=== PATIENT | male | born 1965 | race Caucasian/White ===

== ENCOUNTER 2017-01-15 22:39 | Emergency (ER) | payer OTHER ==
[~2017-01-15 22:39] MED LIST: MOTRIN800 MG PO
[2017-01-15 23:46] VITALS: BP 120/87
== END 2017-01-16 03:13 | disposition left against medical advice (07) ==
LOC: ED 22:39
DX: Z53.21 Procedure and treatment not carried out due to patient leaving prior to being seen by health care provider (principal)

== ENCOUNTER 2017-04-03 14:37 | Emergency (ER) | payer OTHER ==
[~2017-04-03] VITALS: Ht 170.2 cm; Wt 68.9 kg
[2017-04-03 18:21] VITALS: BP 141/89
== END 2017-04-03 18:21 | disposition home or self-care (01) ==
LOC: ED 14:37
DX: F10.10 Alcohol abuse, uncomplicated (principal); I10 Essential (primary) hypertension; H10.10 Acute atopic conjunctivitis, unspecified eye

== ENCOUNTER 2019-08-05 11:19 | Emergency (ER) | payer OTHER ==
[~2019-08-05] VITALS: Ht 157.5 cm; Wt 69.9 kg
[2019-08-05 11:28] VITALS: Ht 157.5 cm; Wt 69.9 kg
[2019-08-05 12:32] LABS: CALCIUM 9.3 mg/dL (8.5-10.1); CARBON DIOXIDE 29.9 mmol/L (21-32); CHLORIDE SERUM 98 mmol/L (98-107); CREATININE SERUM 0.7 mg/dL (0.7-1.3); GFR1 > 60 mL/min; GLUCOSE SERUM 114 mg/dL (74-106); POTASSIUM SERUM 4.4 mmol/L (3.5-5.1); SODIUM SERUM 133 mmol/L (136-145)
[2019-08-05 12:37] LABS: ALBUMIN 4.1 g/dL (3.4-5.0); ALKALINE PHOSPHATASE 111 U/L (46-116); ALT/SGPT 36 U/L (16-63); AST/SGOT 36 U/L (15-37); BILIRUBIN TOTAL 0.9 mg/dL (0.20-1.00); CHOLESTEROL 266 mg/dL (<200); CHOLESTEROL/HDL RATIO 2.5; FREE T4 0.82 ng/dL (0.76-1.46); HDL CHOLESTEROL 106 mg/dL (40-60); LIPASE 202 IU/L (73-393); T3 TOTAL 1.32 ng/mL; T4(THYROXINE) 6.6 ug/dL (4.7-13.3); TOTAL PROTEIN, SERUM 8.5 g/dL (6.4-8.2); TRIGLYCERIDES 106 mg/dL (<150)
[2019-08-05 13:11] LABS: microscopic required? NO
[2019-08-05 13:18] LABS: BASOPHIL % 0.7 % (0-2); PLATELET COUNT 210 x10^3mcL (130-400); RED CELL DISTRIBUTION WIDTH 12.2 % (11.5-14.5)
[2019-08-05 13:28] LABS: UA SPECIFIC GRAVITY <=1.005 (1.005-1.035); urine erythrocyte NEGATIVE (NEGATIVE)
[2019-08-05 13:43] LABS: AMPHETAMINE QUAL UR NONE DETECTED (See below)
[2019-08-05 14:30] VITALS: BP 138/62
== END 2019-08-05 14:30 | disposition home or self-care (01) ==
LOC: ED 11:19
PROVIDERS: Specialist
DX: R07.89 Other chest pain (principal); F10.20 Alcohol dependence, uncomplicated; I10 Essential (primary) hypertension; Z98.890 Other specified postprocedural states
CPT/HCPCS: 83880; 84439; G0480; J1885; J7030